=== PATIENT | female | born 1975 | race Caucasian/White ===

== ENCOUNTER → 2016-12-09 | Outpatient (CLI) | payer BC ==
[~2016-12-09] MED LIST: DEXILANT60 MG PO; LEXAPRO 10MG10 MG PO; PROVENTIL0.09 MG/A1 IH; ZYRTEC 10MG10 MG PO
== END ==
LOC: BHSO 08:57
DX: F41.1 Generalized anxiety disorder (principal)

== ENCOUNTER → 2017-06-09 | Outpatient (CLI) | payer BC | LOC: BHSO 08:59 | DX: F33.42 Major depressive disorder, recurrent, in full remission (principal) ==

== ENCOUNTER → 2017-12-08 | Outpatient (CLI) | payer BC | LOC: BHSO 08:54 | DX: F33.42 Major depressive disorder, recurrent, in full remission (principal) | CPT/HCPCS: G0463 ==

== ENCOUNTER → 2018-06-08 | Outpatient (CLI) | payer BC | LOC: BHSO 09:04 | DX: F41.1 Generalized anxiety disorder (principal) | CPT/HCPCS: G0463 ==

== ENCOUNTER → 2018-09-14 | Outpatient (CLI) | payer BC | LOC: MC.RAD 08:40 | DX: Z12.31 Encounter for screening mammogram for malignant neoplasm of breast (principal) ==

== ENCOUNTER → 2018-12-07 | Outpatient (CLI) | payer BC | LOC: BHSO 09:04 | DX: F41.0 Panic disorder [episodic paroxysmal anxiety] (principal) | CPT/HCPCS: G0463 ==

== ENCOUNTER → 2019-06-07 | Outpatient (CLI) | payer BC | LOC: BHSO 08:36 | DX: F41.1 Generalized anxiety disorder (principal) | CPT/HCPCS: G0463 ==

== ENCOUNTER → 2020-06-05 | Outpatient (CLI) | payer BC | LOC: BHSO 08:41 | DX: F31.81 Bipolar II disorder (principal) | CPT/HCPCS: G0463 ==

== ENCOUNTER → 2020-12-18 | Outpatient (CLI) | payer BC | LOC: MC.RAD 08:30 | DX: Z12.31 Encounter for screening mammogram for malignant neoplasm of breast (principal); N64.89 Other specified disorders of breast ==

== ENCOUNTER → 2021-01-08 | Outpatient (CLI) | payer BC | LOC: MC.RAD 13:50 | DX: N60.01 Solitary cyst of right breast (principal); N64.89 Other specified disorders of breast ==

== ENCOUNTER → 2021-09-17 | Outpatient (CLI) | payer BC | LOC: MC.RAD 13:56 | DX: N60.01 Solitary cyst of right breast (principal) ==

== ENCOUNTER → 2023-10-06 | Outpatient (CLI) | payer BC ==
[2006-06-22 18:42] VITALS: BP 114/64; PULSE 80; TEMP 97.5
== END ==
LOC: MC.RAD 08:43
DX: Z12.31 Encounter for screening mammogram for malignant neoplasm of breast (principal)